=== PATIENT | male | born 1965 | race African-American/Black ===

== ENCOUNTER 2016-12-07 21:04 | Emergency (ER) | payer MEDICAID ==
--- NOTE | ~2016-12-07 | NM69 ---
[facility] A Service of [facility] RADIOLOGY TEXT RESULTS PATIENT: DEBBIE BOND LOCATION: [facility] : [birth year] UNIT #: [id number] AGE: [address]: Jian Unger MD SEX: M ORDER DR: [id number] [facility] [address] [place], [place] [address] [id number] E MR#: [id number] Acc #: [id number] NAME: DEBBIE BOND : 1965 SEX: M STUDY DATE/TIME: 12/08/2016 1:17 UNIT: [facility] ROOM: STUDY DESCRIPTION: NM Pulm Vent and Perf Attending Physician: Jian Unger M.D. Ordering Physician: Jian Unger M.D. Primary Care Physician: Stacy Brown M.D. MEDICAL IMAGING REPORT This report is preliminary unless electronic signature is present EXAM Radionuclide ventilation-perfusion lung scan, 12/08/2016 HISTORY 51-year-old male in the ED complaining of 1-month history of chest pain, shortness of air and left arm pain, now worsening. Elevated D-dimer. Earlier CTA examination of the chest was nondiagnostic. DOSE 31.7 mCi technetium DTPA inhaled in aerosol. 6.0 mCi Technetium labeled MAA administered intravenously. COMPARISON No prior radionuclide exams. CT chest 12/07/2016. FINDINGS Ventilation and perfusion images of both lungs are normal. There is no unmatched perfusion defect to suggest pulmonary embolism. IMPRESSION Normal ventilation-perfusion lung scan. Dictated by... Harris Jenkins M.D. THIS IS AN ELECTRONICALLY VERIFIED REPORT Harris Jenkins M.D. at 12/12/2016 5:00 PM Estephania TD: 12/08/2016 07:57 JOB #: [id number] MEDICAL IMAGING REPORT [facility] A Service of [facility] / [facility] RADIOLOGY TEXT RESULTS PATIENT: DEBBIE BOND LOCATION: [facility] : 65 UNIT #: [id number] AGE: [address]: Jian Unger MD SEX: M ORDER DR: Page 1 of 1 COPY
--- NOTE | ~2016-12-07 | CT16 ---
[facility] A Service of [facility] & [facility] RADIOLOGY TEXT RESULTS PATIENT: DEBBIE BOND LOCATION: [facility] : [birth year] UNIT #: [id number] AGE: [address]: Jian Unger MD SEX: M ORDER DR: [id number] [facility] [address] [place], [place] [address] [id number] E MR#: [id number] Acc #: [id number] NAME: DEBBIE BOND : 1965 SEX: M STUDY DATE/TIME: 12/07/2016 22:39 UNIT: [facility] ROOM: STUDY DESCRIPTION: CT Angio Chest for PE Attending Physician: Jian Unger M.D. Ordering Physician: Jian Unger M.D. Primary Care Physician: Stacy Brown M.D. MEDICAL IMAGING REPORT This report is preliminary unless electronic signature is present EXAM CT chest with contrast, pulmonary arteriography protocol, 12/07/2016 HISTORY 51-year-old male in the ED complaining of 1-month history of chest pain, shortness of air and left arm pain. Elevated D-dimer. TECHNIQUE CT examination of the chest was performed with IV contrast using pulmonary arteriography protocol. 3-D CTA images of the pulmonary arteries were reformatted in multiple planes. This CT examination was performed with one or more of the following radiation dose reduction techniques: automatic exposure control, adjustment of mA and/or kV according to patient size, and iterative reconstruction. FINDINGS The examination is nondiagnostic for the exclusion of pulmonary embolism due to delayed contrast bolus timing. There is preferential opacification of the thoracic aorta. No large central pulmonary embolism is present within the main pulmonary arteries or central hilar region pulmonary arteries. Medium and smaller peripheral pulmonary arteries cannot be assessed. Thoracic aorta is normal in caliber with no aneurysm or dissection. The lungs are expanded and clear. No pulmonary infiltrate or pleural effusion. Heart size is normal, there is no pericardial effusion. Limited upper abdominal images show diffuse hepatic steatosis. IMPRESSION 1. Nondiagnostic examination for the exclusion of pulmonary embolism due to delayed contrast bolus timing. There is no large pulmonary embolism within the main pulmonary arteries or large central pulmonary arteries [facility] A Service of [facility] & [facility] RADIOLOGY TEXT RESULTS PATIENT: DEBBIE BOND LOCATION: [facility] : 65 UNIT #: [id number] AGE: [address]: Jian Unger MD SEX: M ORDER DR: in the hilar regions. Medium and smaller peripheral vessels cannot be assessed. 2. No acute abnormality is seen within the chest. Thoracic aorta is normal in caliber and appearance. Heart size normal. No pericardial effusion. The lungs are clear, there is no pleural effusion. Dictated by... Harris Jenkins M.D. THIS IS AN ELECTRONICALLY VERIFIED REPORT Harris Jenkins M.D. at 12/12/2016 5:00 PM Nitin TD: 12/08/2016 07:11 JOB #: [id number] MEDICAL IMAGING REPORT Page 1 of 1 COPY
--- NOTE | ~2016-12-07 | EKG ---
PATIENT: DEBBIE BOND UNIT #: [id number] Ventricular Rate: 100 BPM Atrial Rate: 100 BPM P-R Interval: 158 ms QRS Duration: 102 ms Q-T Interval: 342 ms QTC Calculation(Bezet): 441 ms P [place]: 59 degrees Calculated R [place]: 53 degrees Calculated T [place]: 29 degrees Diagnosis Line: Normal sinus rhythm Diagnosis Line: Normal ECG Diagnosis Line: No previous ECGs available Diagnosis Line: Confirmed by ARMANDO MONTANO MD ([id number]) on 12/11/2016 Diagnosis Line: 10:40:56 PM INTERPRETING MD: DUSTY LEAL
--- NOTE | ~2016-12-07 | CR72 ---
[facility] A Service of [facility] & [facility] RADIOLOGY TEXT RESULTS PATIENT: DEBBIE BOND LOCATION: [facility] : 65 UNIT #: [id number] AGE: [address]: Jian Unger MD SEX: M ORDER DR: [id number] [facility] [address] [place], [place] [address] [id number] E MR#: [id number] Acc #: [id number] NAME: DEBBIE BOND : 1965 SEX: M STUDY DATE/TIME: 12/07/2016 19:37 UNIT: [facility] ROOM: STUDY DESCRIPTION: CR Chest Single View Portable Attending Physician: Jian Unger M.D. Ordering Physician: Jian Unger M.D. Primary Care Physician: Stacy Sanon MEDICAL IMAGING REPORT This report is preliminary unless electronic signature is present EXAM Portable chest, 12/07/2016 HISTORY Chest pain, shortness of air x1 month. COMPARISON 04/10/2005 FINDINGS Portable view of the chest demonstrates moderate lung volume satisfactory technique. No infiltrates or effusions. Heart, mediastinum and great vessels and bony thorax are unremarkable. Surgical clips are seen overlying the left axilla left chest. Correlate with surgical history. Overall no acute findings. Dictated by... Alireza Dumas M.D. THIS IS AN ELECTRONICALLY VERIFIED REPORT Alireza Dumas M.D. at 12/08/2016 2:38 PM EFFIE/yuliya TD: 12/07/2016 23:44 JOB #: [id number] MEDICAL IMAGING REPORT Page 1 of 1 COPY
[2016-12-07 20:28] LABS: POC - CKMB 1.5 ng/mL (0.0-7.9); POC - TROPONIN <0.05 ng/mL (<=0.05)
[2016-12-07 20:29] LABS: INFLUENZA A NEG (NEG); INFLUENZA B NEG (NEG)
[2016-12-07 20:38] LABS: ALBUMIN SERUM 4.6 g/dL (3.5-5.0); BILIRUBIN, DIRECT 0.1 mg/dL (0.0-0.2); BILIRUBIN,INDIRECT 0.6 mg/dL (0.0-0.9); BILIRUBIN,TOTAL 0.7 mg/dL (0.2-2.0); BUN/CREATININE RATIO 11.42; CALCIUM SERUM 9.3 mg/dL (8.4-10.2); CREATININE SERUM 0.7 mg/dL (0.6-1.4); GLOM FILT RATE Estimated 109.3 mL/min (>60); POTASSIUM 3.3 mmol/L (3.5-5.1); PROTEIN TOTAL SERUM 8.7 g/dL (6.0-8.3)
[2016-12-07 20:50] LABS: URINE SOURCE CLEAN CATCH
[2016-12-07 20:55] LABS: BASOPHIL# 0.1 X10e3 (0-0.3); BASOPHIL% 2.3 % (0-2.5); EOSINOPHIL# 0.1 X10e3 (0-0.7); EOSINOPHIL% 2.8 % (0.0-7.0); HEMATOCRIT 43.3 % (38.0-50.0); HEMOGLOBIN 14.4 gm/dL (13.0-16.0); LYMPHOCYTE# 1.7 X10e3 (1.0-3.5); LYMPHOCYTE% 44.1 % (17.0-45.0); MEAN CELL VOLUME 90.2 FL (83-96); MEAN CORPUSCULAR HGB CONC 33.3 g/dL (30-36); MEAN PLATELET VOLUME 7.4 FL (6.5-11.5); MONOCYTE# 0.6 X10e3 (0-1.0); MONOCYTE% 14.5 % (3.0-12.0); NEUTROPHIL# 1.4 X10e3 (1.5-7.1); NEUTROPHIL% 36.3 % (40-75); PLATELET COUNT 255 X10e3 (140-420); RED CELL DISTRIBUTION WIDTH 13.6 % (11.0-15.5)
[2016-12-07 20:56] LABS: DIFF IND NO
[2016-12-07 20:58] LABS: URINE APPEARANCE CLEAR; URINE BILIRUBIN NEG (NEG); URINE BLOOD NEG (NEG); URINE COLOR YELLOW; URINE GLUCOSE NEG (NEG); URINE KETONE TRACE (NEG); URINE LEUKOCYTE ESTERASE NEG (NEG); URINE NITRATE NEG (NEG); URINE PH 5.5 (5-8); URINE PROTEIN NEG (NEG); URINE SPECIFIC GRAVITY 1.017 (1.003-1.035)
[2016-12-07 21:10] LABS: CULTURE INDICATED? NO
[2016-12-07 21:19] LABS: PARTIAL THROMBOPLASTIN TIME 24.7 SECONDS (23.5-31.3); PROTHROMBIN TIME (PATIENT) 10.1 SECONDS (9.6-11.5)
[2016-12-07 21:21] LABS: AMPHETAMINE NEG (NEG); BARBITURATES NEG (NEG); BENZODIAZEPINES NEG (NEG); COCAINE NEG (NEG); MARIJUANA NEG (NEG); OPIATES NEG (NEG); TRICYCLIC ANTIDEPRESSANTS NEG (NEG); U METHADONE NEG (NEG)
[2016-12-07 23:14] LABS: POC - CKMB <1.0 ng/mL (0.0-7.9); POC - TROPONIN <0.05 ng/mL (<=0.05)
== END 2016-12-08 02:11 | disposition home or self-care (01) ==
LOC: CED 21:04
PROVIDERS: Emergency Medicine
DX: R07.9 Chest pain, unspecified (principal); R05 Cough; F41.9 Anxiety disorder, unspecified; F10.129 Alcohol abuse with intoxication, unspecified; Z88.0 Allergy status to penicillin
CPT/HCPCS: 36415; 71010; 71275; 78582; 80048; 80076; 80307; 81003; 82550; 82553; 84484; 85025; 85379; 85610; 85730; 87804; 93005; 99284; A9540; A9567; G0480; Q9967